=== PATIENT | male | born 1985 | race Caucasian/White ===

== ENCOUNTER 2018-01-24 16:27 | Observation (INO) | payer OTHER ==
[~2018-01-24] VITALS: Ht 182.9 cm; Wt 136.1 kg
[2018-01-24 16:55] LABS: BASO # 0.1 x10^3/uL (0.0-0.2); BASO % 1 % (0-3); EOS # 0.1 x10^3/uL (0.0-0.7); EOS % 1 % (0-3); HEMATOCRIT 47.7 % (39.0-53.0); LYMPH # 2.4 x10^3/uL (1.0-4.8); LYMPH % 19 % (24-48); MEAN CORPUSCULAR HEMOGLOBIN 31 pg (25-35); MEAN CORPUSCULAR HGB CONC 36 g/dL (31-37); MEAN CORPUSCULAR VOLUME 86 fL (79-100); MONO % 8 % (0-9); NEUT # 9.1 x10^3uL (1.8-7.7); NEUT % 72 % (31-73); PLATELET COUNT 350 x10^3/uL (140-400); RED BLOOD COUNT 5.56 x10^6/uL (4.30-5.70); RED CELL DISTRIBUTION WIDTH 13.3 % (11.5-14.5); WHITE BLOOD COUNT 12.7 x10^3/uL (4.0-11.0)
[2018-01-24] MEDS ORDERED: ONDANSETRON PF 4 MG/2 ML VIAL. IV ONE (17:00)
[2018-01-24] MEDS ORDERED: MORPHINE SULFATE 4 MG/ML VIAL. IV ONE ×2 (17:00→18:15)
[2018-01-24 17:05] LABS: PROTHROMBIN TIME PATIENT 13.6 SEC (11.7-14.0)
[2018-01-24 17:06] LABS: CALCIUM 9.8 mg/dL (8.5-10.1); GFR 86.1; POTASSIUM 3.6 mmol/L (3.5-5.1)
[2018-01-24 17:08] LABS: D-DIMER < 0.27 ug/mlFEU (0.00-0.50)
[2018-01-24 17:17] LABS: ALBUMIN 4.1 g/dL (3.4-5.0); MAGNESIUM 1.9 mg/dL (1.8-2.4); TOTAL BILIRUBIN 0.7 mg/dL (0.2-1.0); TOTAL PROTEIN 8.2 g/dL (6.4-8.2)
--- NOTE | 2018-01-24 17:30 | PHYS DOC ---
Past Medical History Past Medical History: No Pertinent History Additional Past Surgical Histo: HERNIA INFANT Alcohol Use: None Drug Use: None Adult General Chief Complaint Chief Complaint: ABDOMINAL PAIN HPI HPI Patient is a 32 year old presented to the ER for evaluation of right side abdominal pain since 2 days ago. The pain began to radiate to right lower abdominal area today, associate with nausea. Patient denied any fever. No chest pain, no shortness of air. Patient denied any medical history, not on any medication at this time. Patient's father has history of CAD with STENTS. Patient has no history of diabetic, no HTN, NO cholesterol problem. He denied any urinary symptoms. Review of Systems Review of Systems Constitutional: Denies fever or chills [] Eyes: Denies change in visual acuity, redness, or eye pain [] HENT: Denies nasal congestion or sore throat [] Respiratory: Denies cough or shortness of breath [] Cardiovascular: No additional information not addressed in HPI [] GI: Positive for abdominal pain, nausea,NO vomiting, bloody stools or diarrhea [ ] : Denies dysuria or hematuria [] Musculoskeletal: Denies back pain or joint pain [] Integument: Denies rash or skin lesions [] Neurologic: Denies headache, focal weakness or sensory changes [] Endocrine: Denies polyuria or polydipsia [] All other systems were reviewed and found to be within normal limits, except as documented in this note. Current Medications Current Medications Current Medications Medications (Trade) Dose Ordered Sig/Kash Start Time Stop Time Status Last Admin Dose Admin Info (CONTRAST GIVEN -- Rx MONITORING) 1 each PRN DAILY PRN 01/24/18 17:45 01/26/18 17:44 Iohexol (Omnipaque 300 Mg/ml) 75 ml 1X ONCE 01/24/18 17:45 01/24/18 17:46 DC 01/24/18 18:00 100 ML Morphine Sulfate (Morphine Sulfate) 6 mg PRN Q2HR PRN 01/24/18 19:30 01/25/18 19:29 UNV Ondansetron HCl (Zofran) 4 mg PRN Q8HRS PRN 01/24/18 19:30 01/25/18 19:29 UNV Ringer's Solution 1,000 ml @ 75 mls/hr 1X ONCE 01/24/18 19:30 01/25/18 08:49 UNV Sodium Chloride 1,000 ml @ 1,000 mls/hr 1X ONCE 01/24/18 18:30 01/24/18 19:29 01/24/18 18:30 1,000 MLS/HR Allergies Allergies Allergies Coded Allergies Type Severity Reaction Last Updated Verified Penicillins Allergy Unknown 01/24/18 Yes Sulfa (Sulfonamide Antibiotics) Allergy Unknown 01/24/18 Yes Physical Exam Physical Exam Constitutional: Well developed, well nourished, no acute distress, non-toxic appearance. [] HENT: Normocephalic, atraumatic, bilateral external ears normal, oropharynx moist, no oral exudates, nose normal. [] Eyes: PERRLA, EOMI, conjunctiva normal, no discharge. [] Neck: Normal range of motion, no tenderness, supple, no stridor. [] Cardiovascular:Heart rate regular rhythm, no murmur [] Lungs & Thorax: Bilateral breath sounds clear to auscultation [] Abdomen: Bowel sounds normal, soft, There is tenderness to palpation in PERIUMBILICAL AREA, NO GUARDING, NO REBOUND, no masses, no pulsatile masses. [] Skin: Warm, dry, no erythema. PALE. Back: No tenderness, no CVA tenderness. [] Extremities: No tenderness, no cyanosis, no clubbing, ROM intact, no edema. [] Neurologic: Alert and oriented X 3, normal motor function, normal sensory function, no focal deficits noted. [] Psychologic: Affect normal, judgement normal, mood normal. [] Current Patient Data Vital Signs Vital Signs Date Time Temp Pulse Resp B/P (MAP) Pulse Ox O2 Delivery O2 Flow Rate FiO2 01/24/18 16:48 98.6 81 18 227/109 (148) 100 Room Air 98.6 Lab Values Laboratory Tests Test 01/24/18 16:46 01/24/18 17:23 White Blood Count 12.7 x10^3/uL (4.0-11.0) H Red Blood Count 5.56 x10^6/uL (4.30-5.70) Hemoglobin 17.0 g/dL (13.0-17.5) Hematocrit 47.7 % (39.0-53.0) Mean Corpuscular Volume 86 fL (79-100) Mean Corpuscular Hemoglobin 31 pg (25-35) Mean Corpuscular Hemoglobin Concent 36 g/dL (31-37) Red Cell Distribution Width 13.3 % (11.5-14.5) Platelet Count 350 x10^3/uL (140-400) Neutrophils (%) (Auto) 72 % (31-73) Lymphocytes (%) (Auto) 19 % (24-48) L Monocytes (%) (Auto) 8 % (0-9) Eosinophils (%) (Auto) 1 % (0-3) Basophils (%) (Auto) 1 % (0-3) Neutrophils # (Auto) 9.1 x10^3uL (1.8-7.7) H Lymphocytes # (Auto) 2.4 x10^3/uL (1.0-4.8) Monocytes # (Auto) 1.0 x10^3/uL (0.0-1.1) Eosinophils # (Auto) 0.1 x10^3/uL (0.0-0.7) Basophils # (Auto) 0.1 x10^3/uL (0.0-0.2) Prothrombin Time 13.6 SEC (11.7-14.0) Prothrombin Time INR 1.1 (0.8-1.1) D-Dimer (Alda) < 0.27 ug/mlFEU Sodium Level 136 mmol/L (136-145) Potassium Level 3.6 mmol/L (3.5-5.1) Chloride Level 98 mmol/L (98-107) Carbon Dioxide Level 26 mmol/L (21-32) Anion Gap 12 (6-14) Blood Urea Nitrogen 10 mg/dL (8-26) Creatinine 1.0 mg/dL (0.7-1.3) Estimated GFR (Cockcroft-Gault) 86.1 BUN/Creatinine Ratio 10 (6-20) Glucose Level 130 mg/dL (70-99) H Calcium Level 9.8 mg/dL (8.5-10.1) Magnesium Level 1.9 mg/dL (1.8-2.4) Total Bilirubin 0.7 mg/dL (0.2-1.0) Aspartate Amino Transferase (AST) 21 U/L (15-37) Alanine Aminotransferase (ALT) 35 U/L (16-63) Alkaline Phosphatase 95 U/L (46-116) Creatine Kinase 96 U/L (39-308) Creatine Kinase MB (Mass) 0.7 ng/mL (0.0-3.6) Creatine Kinase MB Relative Index 0.7 % (0-4) Troponin I Quantitative < 0.017 ng/mL (0.000-0.055) EN-Mso-O-Type Natriuretic Peptide 24 pg/mL (0-124) Total Protein 8.2 g/dL (6.4-8.2) Albumin 4.1 g/dL (3.4-5.0) Albumin/Globulin Ratio 1.0 (1.0-1.7) Lipase 79 U/L (73-393) Urine Collection Type Unknown Urine Color Dk yellow Urine Clarity Clear Urine pH 6.5 Urine Specific [place] 1.025 Urine Protein 100 mg/dL (NEG-TRACE) Urine Glucose (UA) Negative mg/dL (NEG) Urine Ketones (Stick) 40 mg/dL (NEG) Urine Blood Negative (NEG) Urine Nitrite Negative (NEG) Urine Bilirubin Negative (NEG) Urine Urobilinogen Dipstick 1.0 mg/dL (0.2 mg/dL) Urine Leukocyte Esterase Negative (NEG) Urine RBC 0 /HPF (0-2) Urine WBC Rare /HPF (0-4) Urine Squamous Epithelial Cells None /LPF Urine Bacteria 0 /HPF (0-FEW) Urine Hyaline Casts Moderate /HPF Urine Mucus Marked /LPF Urine Opiates Screen Neg (NEG) Urine Methadone Screen Neg (NEG) Urine Barbiturates Neg (NEG) Urine Phencyclidine Screen Neg (NEG) Urine Amphetamine/Methamphetamine Neg (NEG) Urine Benzodiazepines Screen Neg (NEG) Urine Cocaine Screen Neg (NEG) Urine Cannabinoids Screen Neg (NEG) Urine Ethyl Alcohol Neg (NEG) Laboratory Tests 01/24/18 16:46 Laboratory Tests 01/24/18 16:46 EKG EKG EKG: RATE OF 65 BPM, NO STEMI. NSR. Radiology/Procedures Radiology/Procedures CT abd/pelvis: Abdomen findings: Lung bases unremarkable. L5-S1 disc osteophyte with spinal canal and neural foraminal stenoses. Hypodense liver likely fatty. Gallbladder, pancreas, adrenals, spleen and kidneys are unremarkable. There is mild asymmetric fluid distention of the terminal ileum and cecum without significant inflammatory change surrounding the segments. Appendix is normal without inflammation. No abdominal fluid. No adenopathy. Pelvis findings: Bladder, prostate, rectum and bones are unremarkable. No fluid or adenopathy. IMPRESSION: 1. Mild asymmetric fluid distention of the terminal ileum and cecum at the right lower quadrant with no wall thickening or surrounding edema. This could represent changes of low-grade ileocolitis. Given the fluid distention without obvious inflammation, low-grade obstruction at the ileocecal junction would also be a consideration. 2. The appendix is negative. Course & Med Decision Making Course & Med Decision Making Pertinent Labs and Imaging studies reviewed. (See chart for details) Patient's care was transferred over to Dr. Lavell Lopez at shift change, awaiting for CT SCAN OF ABDOMEN AND PELVIC. 19:20: Patient is evaluated and reexamined. He does continue to complain of some abdominal distention and "pressure." About his abdomen. He also continues to complain of some mild pain. He feels mildly nauseated still. Upon examination of the abdomen is soft and diffusely tender but with no guarding or rebound tenderness. CT scan is complete with findings above. There is no acute small bowel obstruction but some nonspecific findings. Given the fact that he continues to have pain along with nonspecific CT findings, early SBO is not entirely ruled out. It does seem unlikely as he has no significant abdominal surgical hx other than a hernia repair. I discussed with the patient the option for discharge home with clear liquid diet over the next 24-48 hours and strict return precautions versus admission to the hospital on NPO status with IV fluids and monitoring. The patient prefers admission. Bridge orders are placed. IVF's, pain meds. KUB in am. Dragon Disclaimer Maxineon Disclaimer This electronic medical record was generated, in whole or in part, using a voice recognition dictation system. Departure Departure Disposition: 09 ADMITTED INPATIENT Admitting Physician: Mickey Vance Condition: GOOD Referrals: NO PCP (PCP) ESTRELLITA LEE DO Jan 24, 2018 17:30 LAVELL LOPEZ DO Jan 24, 2018 19:16
[2018-01-24 17:32] LABS: BILIRUBIN,URINE NEGATIVE (NEG); CLARITY,URINE CLEAR; NITRITE,URINE NEGATIVE (NEG); PH,URINE 6.5; PROTEIN,URINE 100 mg/dL (NEG-TRACE)
[2018-01-24 17:38] LABS: AMPHETAMINE/METHAMPHETAMINE NEG (NEG); BARBITURATES NEG (NEG); BENZODIAZEPINES NEG (NEG); CANNABINOIDS NEG (NEG); COCAINE NEG (NEG); METHADONE NEG (NEG); OPIATES NEG (NEG); PHENCYCLIDINE NEG (NEG)
[2018-01-24 17:45] LABS: COLOR,URINE DK YELLOW; RBC,URINE 0 /HPF (0-2)
[2018-01-24] MEDS ORDERED: CONTRAST GIVEN. MC PRN (17:45)
[2018-01-24] MEDS ORDERED: IOHEXOL 300 MG/ML 100ML VIAL. IV ONE (17:45)
[2018-01-24 17:46] LABS: BACTERIA,URINE 0 /HPF (0-FEW); HYALINE CASTS, URINE MODERATE /HPF; WBC,URINE RARE /HPF (0-4)
--- NOTE | 2018-01-24 18:23 | RAD ---
CT abdomen and pelvis with contrast HISTORY: Abdominal pain, nausea, vomiting, right-sided abdominal pain. TECHNIQUE: 35 mCi Omnipaque [address] imaging abdomen and pelvis acquired. Abdomen findings: Lung bases unremarkable. L5-S1 disc osteophyte with spinal canal and neural foraminal stenoses. Hypodense liver likely fatty. Gallbladder, pancreas, adrenals, spleen and kidneys are unremarkable. There is mild asymmetric fluid distention of the terminal ileum and cecum without significant inflammatory change surrounding the segments. Appendix is normal without inflammation. No abdominal fluid. No adenopathy. Pelvis findings: Bladder, prostate, rectum and bones are unremarkable. No fluid or adenopathy. IMPRESSION: 1. Mild asymmetric fluid distention of the terminal ileum and cecum at the right lower quadrant with no wall thickening or surrounding edema. This could represent changes of low-grade ileocolitis. Given the fluid distention without obvious inflammation, low-grade obstruction at the ileocecal junction would also be a consideration. 2. The appendix is negative. Exposure: One or more of the following individualized dose reduction techniques were utilized for this examination: 1. Automated exposure control 2. Adjustment of the mA and/or kV according to patient size 3. Use of iterative reconstruction technique Electronically signed by: Arik Gilbert MD (01/24/2018 6:19 PM) [id number]
[2018-01-24] MEDS ORDERED: IV NORMAL SALINE 1000ML BAG 1,000 ML IV ONE (18:30)
[2018-01-24] MEDS ORDERED: IV RINGERS,LACTATED 1000ML 1,000 ML IV ONE (19:30)
[2018-01-24 20:20] VITALS: BP 168/95
[2018-01-24] MEDS: ONDANSETRON PF 4 MG/2 ML VIAL. IV PRN (21:48)
[2018-01-24 23:00] VITALS: BP 151/86
--- NOTE | 2018-01-25 00:11 | HP ---
ADMIT DATE: 01/24/2018 CHIEF COMPLAINT: Abdominal pain. HISTORY OF PRESENT ILLNESS: The patient is a pleasant, healthy 32-year-old male who presented to the ER for evaluation of abdominal pain that has been occurring for 2 days. He vomited once, has some associated weakness. He has been taking [id number] medications, but that is not working. Symptoms are described as agonizing, worse with food. While in the ER, he was noted to have a possible small bowel obstruction and/or low grade ileocolitis, leukocytosis and hyperglycemia. I have discussed the case with the ER physician. We are going to admit the patient and consult GI. PAST MEDICAL HISTORY: Benign. ALLERGIES: PENICILLIN AND SULFA. FAMILY HISTORY: Hypertension. SOCIAL HISTORY: He is working on his master's degree. Does not drink, smoke or take drugs. MEDICATIONS: Reviewed, please refer to the MRAD. REVIEW OF SYSTEMS: GENERAL: No history of weight change, weakness or fevers. SKIN: No bruising, hair changes or rashes. EYES: No blurred, double or loss of vision. NOSE AND THROAT: No history of nosebleeds, hoarseness or sore throat. HEART: No history of palpitations, chest pain or shortness of breath on exertion. LUNGS: Denies cough, hemoptysis, wheezing or shortness of breath. GASTROINTESTINAL: He complains of abdominal pain. GENITOURINARY: No history of frequency, urgency, hesitancy or nocturia. NEUROLOGIC: Denies history of numbness, tingling, tremor or weakness. PSYCHIATRIC: No history of panic, anxiety or depression. ENDOCRINE: No history of heat or cold intolerance, polyuria or polydipsia. EXTREMITIES: Denies muscle weakness, joint pain, pain on walking or stiffness. PHYSICAL EXAMINATION: VITAL SIGNS: Temperature was 98.6, now it is up to 100.8, pulse 80, respirations 18, blood pressure 160/95. GENERAL: He is alert, cooperative, complaining of pain. HEART: Normal S1, S2. LUNGS: Clear to auscultation. ABDOMEN: Soft, tender. EXTREMITIES: Trace edema. SKIN: No rashes. ENDOCRINE: No thyromegaly. LYMPHATICS: No cervical nodes. HEMATOPOIETIC: No bruising. LABORATORY DATA: White count is 12. Electrolytes are normal. INR is 1. Drug screen is negative. Urinalysis negative. Imaging is showing ileocolitis versus small bowel obstruction. ASSESSMENT AND PLAN: Ileocolitis or small bowel obstruction. The patient has been admitted. We will consult Gastroenterology. Start IV antibiotics, IV fluids, p.r.n. Zofran and p.r.n. narcotics. Home medications. Repeat his labs. EDILBERTO JOHNSON DO DR: THIEN/claudia JOB#: [id number] / [id number]
[2018-01-25 03:00] VITALS: BP 165/95
--- NOTE | 2018-01-25 03:33 | EKG ---
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
[2018-01-25 05:08] LABS: BASO % 0 % (0-3); EOS # 0.1 x10^3/uL (0.0-0.7); EOS % 1 % (0-3); HEMATOCRIT 44.6 % (39.0-53.0); HEMOGLOBIN 15.5 g/dL (13.0-17.5); LYMPH # 2.5 x10^3/uL (1.0-4.8); LYMPH % 27 % (24-48); MEAN CORPUSCULAR HEMOGLOBIN 30 pg (25-35); MEAN CORPUSCULAR HGB CONC 35 g/dL (31-37); MEAN CORPUSCULAR VOLUME 87 fL (79-100); MONO # 0.7 x10^3/uL (0.0-1.1); MONO % 8 % (0-9); NEUT # 6.1 x10^3uL (1.8-7.7); NEUT % 64 % (31-73); PLATELET COUNT 302 x10^3/uL (140-400); RED BLOOD COUNT 5.11 x10^6/uL (4.30-5.70); RED CELL DISTRIBUTION WIDTH 13.4 % (11.5-14.5); WHITE BLOOD COUNT 9.4 x10^3/uL (4.0-11.0)
[2018-01-25] MEDS: MORPHINE SULFATE 4 MG/ML VIAL. IV PRN ×2 (05:16→10:42)
[2018-01-25 05:18] LABS: ALBUMIN 3.5 g/dL (3.4-5.0); ALBUMIN/GLOBULIN RATIO 0.9 (1.0-1.7); CALCIUM 9.1 mg/dL (8.5-10.1); CREATININE 0.8 mg/dL (0.7-1.3); GFR 111.3; POTASSIUM 3.4 mmol/L (3.5-5.1); TOTAL BILIRUBIN 0.6 mg/dL (0.2-1.0); TOTAL PROTEIN 7.6 g/dL (6.4-8.2)
[2018-01-25 07:00] VITALS: BP 155/94
[2018-01-25] MEDS: amLODIPine BESYLATE 10 MG TABLET PO SCH ×2 (08:30→20:41)
--- NOTE | 2018-01-25 10:02 | PDOC ---
PROGRESS NOTES History of Present Illness History of Present Illness ASSESSMENT AND PLAN: Ileocolitis or small bowel obstruction. PLAN admitted. consult Gastroenterology. IV antibiotics, IV FLUIDS p.r.n. Zofran and p.r.n. narcotics. Home medications. Vitals Vitals Vital Signs Date Time Temp Pulse Resp B/P (MAP) Pulse Ox O2 Delivery O2 Flow Rate FiO2 01/25/18 08:30 82 155/94 01/25/18 07:56 Room Air 01/25/18 07:00 97.5 16 96 97.5 01/25/18 05:46 94.0 Physical Exam Physical Exam GENERAL: He is alert, cooperative, HEART: Normal S1, S2. LUNGS: Clear to auscultation. ABDOMEN: Soft, tender. EXTREMITIES: Trace edema. SKIN: No rashes. ENDOCRINE: No thyromegaly. LYMPHATICS: No cervical nodes. HEMATOPOIETIC: No bruising. General: Alert, Oriented X3, Cooperative, mild distress Heart: Regular rate, Normal S1, Normal S2 Lungs: Clear Abdomen: Soft Extremities: No clubbing, No cyanosis Skin: No significant lesion Labs LABS Laboratory Tests Test 01/24/18 16:46 01/24/18 17:23 01/25/18 04:05 White Blood Count 12.7 x10^3/uL (4.0-11.0) 9.4 x10^3/uL (4.0-11.0) Red Blood Count 5.56 x10^6/uL (4.30-5.70) 5.11 x10^6/uL (4.30-5.70) Hemoglobin 17.0 g/dL (13.0-17.5) 15.5 g/dL (13.0-17.5) Hematocrit 47.7 % (39.0-53.0) 44.6 % (39.0-53.0) Mean Corpuscular Volume 86 fL (79-100) 87 fL (79-100) Mean Corpuscular Hemoglobin 31 pg (25-35) 30 pg (25-35) Mean Corpuscular Hemoglobin Concent 36 g/dL (31-37) 35 g/dL (31-37) Red Cell Distribution Width 13.3 % (11.5-14.5) 13.4 % (11.5-14.5) Platelet Count 350 x10^3/uL (140-400) 302 x10^3/uL (140-400) Neutrophils (%) (Auto) 72 % (31-73) 64 % (31-73) Lymphocytes (%) (Auto) 19 % (24-48) 27 % (24-48) Monocytes (%) (Auto) 8 % (0-9) 8 % (0-9) Eosinophils (%) (Auto) 1 % (0-3) 1 % (0-3) Basophils (%) (Auto) 1 % (0-3) 0 % (0-3) Neutrophils # (Auto) 9.1 x10^3uL (1.8-7.7) 6.1 x10^3uL (1.8-7.7) Lymphocytes # (Auto) 2.4 x10^3/uL (1.0-4.8) 2.5 x10^3/uL (1.0-4.8) Monocytes # (Auto) 1.0 x10^3/uL (0.0-1.1) 0.7 x10^3/uL (0.0-1.1) Eosinophils # (Auto) 0.1 x10^3/uL (0.0-0.7) 0.1 x10^3/uL (0.0-0.7) Basophils # (Auto) 0.1 x10^3/uL (0.0-0.2) 0.0 x10^3/uL (0.0-0.2) Prothrombin Time 13.6 SEC (11.7-14.0) Prothromb Time International Ratio 1.1 (0.8-1.1) D-Dimer (Alda) < 0.27 ug/mlFEU Sodium Level 136 mmol/L (136-145) 138 mmol/L (136-145) Potassium Level 3.6 mmol/L (3.5-5.1) 3.4 mmol/L (3.5-5.1) Chloride Level 98 mmol/L (98-107) 101 mmol/L (98-107) Carbon Dioxide Level 26 mmol/L (21-32) 27 mmol/L (21-32) Anion Gap 12 (6-14) 10 (6-14) Blood Urea Nitrogen 10 mg/dL (8-26) 8 mg/dL (8-26) Creatinine 1.0 mg/dL (0.7-1.3) 0.8 mg/dL (0.7-1.3) Estimated GFR (Cockcroft-Gault) 86.1 111.3 BUN/Creatinine Ratio 10 (6-20) 10 (6-20) Glucose Level 130 mg/dL (70-99) 90 mg/dL (70-99) Calcium Level 9.8 mg/dL (8.5-10.1) 9.1 mg/dL (8.5-10.1) Magnesium Level 1.9 mg/dL (1.8-2.4) Total Bilirubin 0.7 mg/dL (0.2-1.0) 0.6 mg/dL (0.2-1.0) Aspartate Amino Transf (AST/SGOT) 21 U/L (15-37) 16 U/L (15-37) Alanine Aminotransferase (ALT/SGPT) 35 U/L (16-63) 28 U/L (16-63) Alkaline Phosphatase 95 U/L (46-116) 81 U/L (46-116) Creatine Kinase 96 U/L (39-308) Creatine Kinase MB (Mass) 0.7 ng/mL (0.0-3.6) Creatine Kinase MB Relative Index 0.7 % (0-4) Troponin I Quantitative < 0.017 ng/mL (0.000-0.055) QR-[id number]-[id number]-Type Natriuretic Peptide 24 pg/mL (0-124) Total Protein 8.2 g/dL (6.4-8.2) 7.6 g/dL (6.4-8.2) Albumin 4.1 g/dL (3.4-5.0) 3.5 g/dL (3.4-5.0) Albumin/Globulin Ratio 1.0 (1.0-1.7) 0.9 (1.0-1.7) Lipase 79 U/L (73-393) Urine Collection Type Unknown Urine Color Dk yellow Urine Clarity Clear Urine pH 6.5 Urine Specific [place] 1.025 Urine Protein 100 mg/dL (NEG-TRACE) Urine Glucose (UA) Negative mg/dL (NEG) Urine Ketones (Stick) 40 mg/dL (NEG) Urine Blood Negative (NEG) Urine Nitrite Negative (NEG) Urine Bilirubin Negative (NEG) Urine Urobilinogen Dipstick 1.0 mg/dL (0.2 mg/dL) Urine Leukocyte Esterase Negative (NEG) Urine RBC 0 /HPF (0-2) Urine WBC Rare /HPF (0-4) Urine Squamous Epithelial Cells None /LPF Urine Bacteria 0 /HPF (0-FEW) Urine Hyaline Casts Moderate /HPF Urine Mucus Marked /LPF Urine Opiates Screen Neg (NEG) Urine Methadone Screen Neg (NEG) Urine Barbiturates Neg (NEG) Urine Phencyclidine Screen Neg (NEG) Urine Amphetamine/Methamphetamine Neg (NEG) Urine Benzodiazepines Screen Neg (NEG) Urine Cocaine Screen Neg (NEG) Urine Cannabinoids Screen Neg (NEG) Urine Ethyl Alcohol Neg (NEG) Assessment and Plan Assessmemt and Plan Problems Medical Problems: (1) Abdominal pain Status: Acute Comment Review of Relevant I have reviewed the following items telma (where applicable) has been applied. Labs Laboratory Tests Test 01/24/18 16:46 01/24/18 17:23 01/25/18 04:05 White Blood Count 12.7 x10^3/uL (4.0-11.0) 9.4 x10^3/uL (4.0-11.0) Red Blood Count 5.56 x10^6/uL (4.30-5.70) 5.11 x10^6/uL (4.30-5.70) Hemoglobin 17.0 g/dL (13.0-17.5) 15.5 g/dL (13.0-17.5) Hematocrit 47.7 % (39.0-53.0) 44.6 % (39.0-53.0) Mean Corpuscular Volume 86 fL (79-100) 87 fL (79-100) Mean Corpuscular Hemoglobin 31 pg (25-35) 30 pg (25-35) Mean Corpuscular Hemoglobin Concent 36 g/dL (31-37) 35 g/dL (31-37) Red Cell Distribution Width 13.3 % (11.5-14.5) 13.4 % (11.5-14.5) Platelet Count 350 x10^3/uL (140-400) 302 x10^3/uL (140-400) Neutrophils (%) (Auto) 72 % (31-73) 64 % (31-73) Lymphocytes (%) (Auto) 19 % (24-48) 27 % (24-48) Monocytes (%) (Auto) 8 % (0-9) 8 % (0-9) Eosinophils (%) (Auto) 1 % (0-3) 1 % (0-3) Basophils (%) (Auto) 1 % (0-3) 0 % (0-3) Neutrophils # (Auto) 9.1 x10^3uL (1.8-7.7) 6.1 x10^3uL (1.8-7.7) Lymphocytes # (Auto) 2.4 x10^3/uL (1.0-4.8) 2.5 x10^3/uL (1.0-4.8) Monocytes # (Auto) 1.0 x10^3/uL (0.0-1.1) 0.7 x10^3/uL (0.0-1.1) Eosinophils # (Auto) 0.1 x10^3/uL (0.0-0.7) 0.1 x10^3/uL (0.0-0.7) Basophils # (Auto) 0.1 x10^3/uL (0.0-0.2) 0.0 x10^3/uL (0.0-0.2) Prothrombin Time 13.6 SEC (11.7-14.0) Prothromb Time International Ratio 1.1 (0.8-1.1) D-Dimer (Alda) < 0.27 ug/mlFEU Sodium Level 136 mmol/L (136-145) 138 mmol/L (136-145) Potassium Level 3.6 mmol/L (3.5-5.1) 3.4 mmol/L (3.5-5.1) Chloride Level 98 mmol/L (98-107) 101 mmol/L (98-107) Carbon Dioxide Level 26 mmol/L (21-32) 27 mmol/L (21-32) Anion Gap 12 (6-14) 10 (6-14) Blood Urea Nitrogen 10 mg/dL (8-26) 8 mg/dL (8-26) Creatinine 1.0 mg/dL (0.7-1.3) 0.8 mg/dL (0.7-1.3) Estimated GFR (Cockcroft-Gault) 86.1 111.3 BUN/Creatinine Ratio 10 (6-20) 10 (6-20) Glucose Level 130 mg/dL (70-99) 90 mg/dL (70-99) Calcium Level 9.8 mg/dL (8.5-10.1) 9.1 mg/dL (8.5-10.1) Magnesium Level 1.9 mg/dL (1.8-2.4) Total Bilirubin 0.7 mg/dL (0.2-1.0) 0.6 mg/dL (0.2-1.0) Aspartate Amino Transf (AST/SGOT) 21 U/L (15-37) 16 U/L (15-37) Alanine Aminotransferase (ALT/SGPT) 35 U/L (16-63) 28 U/L (16-63) Alkaline Phosphatase 95 U/L (46-116) 81 U/L (46-116) Creatine Kinase 96 U/L (39-308) Creatine Kinase MB (Mass) 0.7 ng/mL (0.0-3.6) Creatine Kinase MB Relative Index 0.7 % (0-4) Troponin I Quantitative < 0.017 ng/mL (0.000-0.055) [place]-[id number]-Type Natriuretic Peptide 24 pg/mL (0-124) Total Protein 8.2 g/dL (6.4-8.2) 7.6 g/dL (6.4-8.2) Albumin 4.1 g/dL (3.4-5.0) 3.5 g/dL (3.4-5.0) Albumin/Globulin Ratio 1.0 (1.0-1.7) 0.9 (1.0-1.7) Lipase 79 U/L (73-393) Urine Collection Type Unknown Urine Color Dk yellow Urine Clarity Clear Urine pH 6.5 Urine Specific [place] 1.025 Urine Protein 100 mg/dL (NEG-TRACE) Urine Glucose (UA) Negative mg/dL (NEG) Urine Ketones (Stick) 40 mg/dL (NEG) Urine Blood Negative (NEG) Urine Nitrite Negative (NEG) Urine Bilirubin Negative (NEG) Urine Urobilinogen Dipstick 1.0 mg/dL (0.2 mg/dL) Urine Leukocyte Esterase Negative (NEG) Urine RBC 0 /HPF (0-2) Urine WBC Rare /HPF (0-4) Urine Squamous Epithelial Cells None /LPF Urine Bacteria 0 /HPF (0-FEW) Urine Hyaline Casts Moderate /HPF Urine Mucus Marked /LPF Urine Opiates Screen Neg (NEG) Urine Methadone Screen Neg (NEG) Urine Barbiturates Neg (NEG) Urine Phencyclidine Screen Neg (NEG) Urine Amphetamine/Methamphetamine Neg (NEG) Urine Benzodiazepines Screen Neg (NEG) Urine Cocaine Screen Neg (NEG) Urine Cannabinoids Screen Neg (NEG) Urine Ethyl Alcohol Neg (NEG) Laboratory Tests Test 01/24/18 16:46 01/24/18 17:23 01/25/18 04:05 White Blood Count 12.7 x10^3/uL (4.0-11.0) 9.4 x10^3/uL (4.0-11.0) Red Blood Count 5.56 x10^6/uL (4.30-5.70) 5.11 x10^6/uL (4.30-5.70) Hemoglobin 17.0 g/dL (13.0-17.5) 15.5 g/dL (13.0-17.5) Hematocrit 47.7 % (39.0-53.0) 44.6 % (39.0-53.0) Mean Corpuscular Volume 86 fL (79-100) 87 fL (79-100) Mean Corpuscular Hemoglobin 31 pg (25-35) 30 pg (25-35) Mean Corpuscular Hemoglobin Concent 36 g/dL (31-37) 35 g/dL (31-37) Red Cell Distribution Width 13.3 % (11.5-14.5) 13.4 % (11.5-14.5) Platelet Count 350 x10^3/uL (140-400) 302 x10^3/uL (140-400) Neutrophils (%) (Auto) 72 % (31-73) 64 % (31-73) Lymphocytes (%) (Auto) 19 % (24-48) 27 % (24-48) Monocytes (%) (Auto) 8 % (0-9) 8 % (0-9) Eosinophils (%) (Auto) 1 % (0-3) 1 % (0-3) Basophils (%) (Auto) 1 % (0-3) 0 % (0-3) Neutrophils # (Auto) 9.1 x10^3uL (1.8-7.7) 6.1 x10^3uL (1.8-7.7) Lymphocytes # (Auto) 2.4 x10^3/uL (1.0-4.8) 2.5 x10^3/uL (1.0-4.8) Monocytes # (Auto) 1.0 x10^3/uL (0.0-1.1) 0.7 x10^3/uL (0.0-1.1) Eosinophils # (Auto) 0.1 x10^3/uL (0.0-0.7) 0.1 x10^3/uL (0.0-0.7) Basophils # (Auto) 0.1 x10^3/uL (0.0-0.2) 0.0 x10^3/uL (0.0-0.2) Prothrombin Time 13.6 SEC (11.7-14.0) Prothromb Time International Ratio 1.1 (0.8-1.1) D-Dimer (Alda) < 0.27 ug/mlFEU Sodium Level 136 mmol/L (136-145) 138 mmol/L (136-145) Potassium Level 3.6 mmol/L (3.5-5.1) 3.4 mmol/L (3.5-5.1) Chloride Level 98 mmol/L (98-107) 101 mmol/L (98-107) Carbon Dioxide Level 26 mmol/L (21-32) 27 mmol/L (21-32) Anion Gap 12 (6-14) 10 (6-14) Blood Urea Nitrogen 10 mg/dL (8-26) 8 mg/dL (8-26) Creatinine 1.0 mg/dL (0.7-1.3) 0.8 mg/dL (0.7-1.3) Estimated GFR (Cockcroft-Gault) 86.1 111.3 BUN/Creatinine Ratio 10 (6-20) 10 (6-20) Glucose Level 130 mg/dL (70-99) 90 mg/dL (70-99) Calcium Level 9.8 mg/dL (8.5-10.1) 9.1 mg/dL (8.5-10.1) Magnesium Level 1.9 mg/dL (1.8-2.4) Total Bilirubin 0.7 mg/dL (0.2-1.0) 0.6 mg/dL (0.2-1.0) Aspartate Amino Transf (AST/SGOT) 21 U/L (15-37) 16 U/L (15-37) Alanine Aminotransferase (ALT/SGPT) 35 U/L (16-63) 28 U/L (16-63) Alkaline Phosphatase 95 U/L (46-116) 81 U/L (46-116) Creatine Kinase 96 U/L (39-308) Creatine Kinase MB (Mass) 0.7 ng/mL (0.0-3.6) Creatine Kinase MB Relative Index 0.7 % (0-4) Troponin I Quantitative < 0.017 ng/mL (0.000-0.055) GU-Kcb-[id number]-Type Natriuretic Peptide 24 pg/mL (0-124) Total Protein 8.2 g/dL (6.4-8.2) 7.6 g/dL (6.4-8.2) Albumin 4.1 g/dL (3.4-5.0) 3.5 g/dL (3.4-5.0) Albumin/Globulin Ratio 1.0 (1.0-1.7) 0.9 (1.0-1.7) Lipase 79 U/L (73-393) Urine Collection Type Unknown Urine Color Dk yellow Urine Clarity Clear Urine pH 6.5 Urine Specific [place] 1.025 Urine Protein 100 mg/dL (NEG-TRACE) Urine Glucose (UA) Negative mg/dL (NEG) Urine Ketones (Stick) 40 mg/dL (NEG) Urine Blood Negative (NEG) Urine Nitrite Negative (NEG) Urine Bilirubin Negative (NEG) Urine Urobilinogen Dipstick 1.0 mg/dL (0.2 mg/dL) Urine Leukocyte Esterase Negative (NEG) Urine RBC 0 /HPF (0-2) Urine WBC Rare /HPF (0-4) Urine Squamous Epithelial Cells None /LPF Urine Bacteria 0 /HPF (0-FEW) Urine Hyaline Casts Moderate /HPF Urine Mucus Marked /LPF Urine Opiates Screen Neg (NEG) Urine Methadone Screen Neg (NEG) Urine Barbiturates Neg (NEG) Urine Phencyclidine Screen Neg (NEG) Urine Amphetamine/Methamphetamine Neg (NEG) Urine Benzodiazepines Screen Neg (NEG) Urine Cocaine Screen Neg (NEG) Urine Cannabinoids Screen Neg (NEG) Urine Ethyl Alcohol Neg (NEG) Medications Current Medications Morphine Sulfate (Morphine Sulfate) 4 mg 1X ONCE IV Last administered on 01/24 17:11; Start 01/24/18 at 17:00; Stop 01/24/18 at 17:01; Status DC Ondansetron HCl (Zofran) 8 mg 1X ONCE IV Last administered on 01/24/18at 17:11 ; Start 01/24/18 at 17:00; Stop 01/24/18 at 17:01; Status DC Iohexol (Omnipaque 300 Mg/ml) 75 ml 1X ONCE IV Last administered on at 18:00; Start 01/24/18 at 17:45; Stop 01/24/18 at 17:46; Status DC Info (CONTRAST GIVEN -- Rx MONITORING) 1 each PRN DAILY PRN MC SEE COMMENTS; Start 01/24/18 at 17:45; Stop 01/26/18 at 17:44 Sodium Chloride 1,000 ml @ 1,000 mls/hr 1X ONCE IV Last administered on 01/24at 18:30; Start 01/24/18 at 18:30; Stop 01/24/18 at 19:29; Status DC Morphine Sulfate (Morphine Sulfate) 4 mg 1X ONCE IV Last administered on 01/24at 18:33; Start 01/24/18 at 18:15; Stop 01/24/18 at 18:16; Status DC Ondansetron HCl (Zofran) 4 mg PRN Q8HRS PRN IV NAUSEA/VOMITING Last administered on 01/24/18at 21:48; Start 01/24/18 at 19:30; Stop 01/25/18 at 19 :29 Morphine Sulfate (Morphine Sulfate) 6 mg PRN Q2HR PRN IV PAIN Last administered on 01/25/18at 05:16; Start 01/24/18 at 19:30; Stop 01/25/18 at 19 :29 Ringer's Solution 1,000 ml @ 75 mls/hr 1X ONCE IV Last administered on at 19:43; Start 01/24/18 at 19:30; Stop 01/25/18 at 08:49; Status DC Amlodipine Besylate (Norvasc) 10 mg DAILY PO ; Start 01/25/18 at 09:00 Levofloxacin/ Dextrose 150 ml @ 100 mls/hr Q24H IV ; Start 01/25/18 at 21:00 Levofloxacin/ Dextrose 150 ml @ 100 mls/hr ONCE ONCE IV Last administered on 01/25/18at 00:02; Start 01/25/18 at 00:00; Stop 01/25/18 at 01:29; Status DC Metronidazole 100 ml @ 100 mls/hr Q8HRS IV Last administered on 01/25/18at 08: 31; Start 01/25/18 at 07:15 Vitals/I & O Vital Sign - Last 24 Hours 01/24/18 01/24/18 01/24/18 01/24/18 16:48 17:30 18:30 19:30 Temp 98.6 98.6 Pulse 81 66 76 93 Resp 18 18 18 18 B/P (MAP) 227/109 (148) 208/99 (135) 177/97 (123) 176/94 (121) Pulse Ox 100 99 99 O2 Delivery Room Air Room Air O2 Flow Rate 94.0 01/24/18 01/24/18 01/24/18 01/25/18 20:20 20:40 23:00 03:00 Temp 100.8 98.2 98.4 100.8 98.2 98.4 Pulse 86 79 76 Resp 18 18 18 B/P (MAP) 168/95 (119) 151/86 (107) 165/95 (118) Pulse Ox 96 96 92 O2 Delivery Room Air Room Air Room Air Room Air 01/25/18 01/25/18 01/25/18 01/25/18 05:16 05:46 07:00 07:56 Temp 97.5 97.5 Pulse 82 Resp 18 16 B/P (MAP) 155/94 (114) Pulse Ox 92 92 96 O2 Delivery Room Air Room Air Room Air Room Air O2 Flow Rate 94.0 94.0 01/25/18 08:30 Pulse 82 B/P (MAP) 155/94 Intake and Output 01/24/18 01/24/18 01/25/18 15:00 23:00 07:00 Intake Total 0 ml 0 ml Balance 0 ml 0 ml ALONA VARELA MD Jan 25, 2018 10:02
[2018-01-25] MEDS: ONDANSETRON PF 4 MG/2 ML VIAL. IV PRN (10:40)
[2018-01-25 11:00] VITALS: BP 145/97
--- NOTE | 2018-01-25 14:27 | PDOC2 ---
CONSULT Date of Consult Date of Consult DATE: 01/25/18 TIME: 14:17 Reason for Consult Reason for Consult: new abd pain, constipation nausea starting last week History of Present Illness Reason for Visit: 32 yo male in good health with no chronic GI problems. Was in good health until he noted some dehydration last weekend followed by change in bowel pattern with NEW constipation. Normally he has regular bowel movements without laxative use This was followed by lower abdominal pain and cramps and nausea but no fever, diarrhea, rectal bleeding, melena etc. No recent NSAIDS, antibiotics, change in diet etc. Family history negative for colitis, IBD, colon cancer , PUD etc Past Medical History Cardiovascular: No pertinent hx GI: No pertinent hx Past Surgical History Past Surgical History: No pertinent history Family History Family History: Hypertension Current Problem List Problem List Problems Medical Problems: (1) Abdominal pain Status: Acute Current Medications Current Medications Current Medications Morphine Sulfate (Morphine Sulfate) 4 mg 1X ONCE IV Last administered on 01/24at 17:11; Start 01/24/18 at 17:00; Stop 01/24/18 at 17:01; Status DC Ondansetron HCl (Zofran) 8 mg 1X ONCE IV Last administered on 01/24/18at 17:11 ; Start 01/24/18 at 17:00; Stop 01/24/18 at 17:01; Status DC Iohexol (Omnipaque 300 Mg/ml) 75 ml 1X ONCE IV Last administered on at 18:00; Start 01/24/18 at 17:45; Stop 01/24/18 at 17:46; Status DC Info (CONTRAST GIVEN -- Rx MONITORING) 1 each PRN DAILY PRN MC SEE COMMENTS; Start 01/24/18 at 17:45; Stop 01/26/18 at 17:44 Sodium Chloride 1,000 ml @ 1,000 mls/hr 1X ONCE IV Last administered on 01/24at 18:30; Start 01/24/18 at 18:30; Stop 01/24/18 at 19:29; Status DC Morphine Sulfate (Morphine Sulfate) 4 mg 1X ONCE IV Last administered on 01/24at 18:33; Start 01/24/18 at 18:15; Stop 01/24/18 at 18:16; Status DC Ondansetron HCl (Zofran) 4 mg PRN Q8HRS PRN IV NAUSEA/VOMITING Last administered on 01/25/18at 10:40; Start 01/24/18 at 19:30; Stop 01/25/18 at 19 :29 Morphine Sulfate (Morphine Sulfate) 6 mg PRN Q2HR PRN IV PAIN Last administered on 01/25/18at 10:42; Start 01/24/18 at 19:30; Stop 01/25/18 at 19 :29 Ringer's Solution 1,000 ml @ 75 mls/hr 1X ONCE IV Last administered on at 19:43; Start 01/24/18 at 19:30; Stop 01/25/18 at 08:49; Status DC Amlodipine Besylate (Norvasc) 10 mg DAILY PO ; Start 01/25/18 at 09:00 Levofloxacin/ Dextrose 150 ml @ 100 mls/hr Q24H IV ; Start 01/25/18 at 21:00 Levofloxacin/ Dextrose 150 ml @ 100 mls/hr ONCE ONCE IV Last administered on 01/25/18at 00:02; Start 01/25/18 at 00:00; Stop 01/25/18 at 01:29; Status DC Metronidazole 100 ml @ 100 mls/hr Q8HRS IV Last administered on 01/25/18at 12: 51; Start 01/25/18 at 07:15 Allergies Allergies: Coded Allergies: Penicillins (Verified Allergy, Unknown, 01/24/18) Sulfa (Sulfonamide Antibiotics) (Verified Allergy, Unknown, 01/24/18) ROS Gastrointestinal: Yes Nausea, Yes Abdominal Pain, Yes Constipation Physical Exam General: Alert, Oriented X3 HEENT: PERRLA Lungs: Clear to auscultation Heart: Regular rate, Normal S1, Normal S2 Abdomen: Normal bowel sounds, Soft, No tenderness, No hepatosplenomegaly, No masses Extremities: No clubbing, No cyanosis Skin: No rashes Neuro: Normal speech Psych/Mental Status: Mental status NL Vitals VITALS Vital Signs Date Time Temp Pulse Resp B/P (MAP) Pulse Ox O2 Delivery O2 Flow Rate FiO2 01/25/18 11:18 Room Air 01/25/18 11:00 97.7 63 18 145/97 (113) 95 97.7 01/25/18 05:46 94.0 Labs Labs Laboratory Tests Test 01/24/18 16:46 01/24/18 17:23 01/25/18 04:05 White Blood Count 12.7 x10^3/uL (4.0-11.0) 9.4 x10^3/uL (4.0-11.0) Red Blood Count 5.56 x10^6/uL (4.30-5.70) 5.11 x10^6/uL (4.30-5.70) Hemoglobin 17.0 g/dL (13.0-17.5) 15.5 g/dL (13.0-17.5) Hematocrit 47.7 % (39.0-53.0) 44.6 % (39.0-53.0) Mean Corpuscular Volume 86 fL (79-100) 87 fL (79-100) Mean Corpuscular Hemoglobin 31 pg (25-35) 30 pg (25-35) Mean Corpuscular Hemoglobin Concent 36 g/dL (31-37) 35 g/dL (31-37) Red Cell Distribution Width 13.3 % (11.5-14.5) 13.4 % (11.5-14.5) Platelet Count 350 x10^3/uL (140-400) 302 x10^3/uL (140-400) Neutrophils (%) (Auto) 72 % (31-73) 64 % (31-73) Lymphocytes (%) (Auto) 19 % (24-48) 27 % (24-48) Monocytes (%) (Auto) 8 % (0-9) 8 % (0-9) Eosinophils (%) (Auto) 1 % (0-3) 1 % (0-3) Basophils (%) (Auto) 1 % (0-3) 0 % (0-3) Neutrophils # (Auto) 9.1 x10^3uL (1.8-7.7) 6.1 x10^3uL (1.8-7.7) Lymphocytes # (Auto) 2.4 x10^3/uL (1.0-4.8) 2.5 x10^3/uL (1.0-4.8) Monocytes # (Auto) 1.0 x10^3/uL (0.0-1.1) 0.7 x10^3/uL (0.0-1.1) Eosinophils # (Auto) 0.1 x10^3/uL (0.0-0.7) 0.1 x10^3/uL (0.0-0.7) Basophils # (Auto) 0.1 x10^3/uL (0.0-0.2) 0.0 x10^3/uL (0.0-0.2) Prothrombin Time 13.6 SEC (11.7-14.0) Prothromb Time International Ratio 1.1 (0.8-1.1) D-Dimer (Alda) < 0.27 ug/mlFEU Sodium Level 136 mmol/L (136-145) 138 mmol/L (136-145) Potassium Level 3.6 mmol/L (3.5-5.1) 3.4 mmol/L (3.5-5.1) Chloride Level 98 mmol/L (98-107) 101 mmol/L (98-107) Carbon Dioxide Level 26 mmol/L (21-32) 27 mmol/L (21-32) Anion Gap 12 (6-14) 10 (6-14) Blood Urea Nitrogen 10 mg/dL (8-26) 8 mg/dL (8-26) Creatinine 1.0 mg/dL (0.7-1.3) 0.8 mg/dL (0.7-1.3) Estimated GFR (Cockcroft-Gault) 86.1 111.3 BUN/Creatinine Ratio 10 (6-20) 10 (6-20) Glucose Level 130 mg/dL (70-99) 90 mg/dL (70-99) Calcium Level 9.8 mg/dL (8.5-10.1) 9.1 mg/dL (8.5-10.1) Magnesium Level 1.9 mg/dL (1.8-2.4) Total Bilirubin 0.7 mg/dL (0.2-1.0) 0.6 mg/dL (0.2-1.0) Aspartate Amino Transf (AST/SGOT) 21 U/L (15-37) 16 U/L (15-37) Alanine Aminotransferase (ALT/SGPT) 35 U/L (16-63) 28 U/L (16-63) Alkaline Phosphatase 95 U/L (46-116) 81 U/L (46-116) Creatine Kinase 96 U/L (39-308) Creatine Kinase MB (Mass) 0.7 ng/mL (0.0-3.6) Creatine Kinase MB Relative Index 0.7 % (0-4) Troponin I Quantitative < 0.017 ng/mL (0.000-0.055) JZ-[id number]-Type Natriuretic Peptide 24 pg/mL (0-124) Total Protein 8.2 g/dL (6.4-8.2) 7.6 g/dL (6.4-8.2) Albumin 4.1 g/dL (3.4-5.0) 3.5 g/dL (3.4-5.0) Albumin/Globulin Ratio 1.0 (1.0-1.7) 0.9 (1.0-1.7) Lipase 79 U/L (73-393) Urine Collection Type Unknown Urine Color Dk yellow Urine Clarity Clear Urine pH 6.5 Urine Specific [place] 1.025 Urine Protein 100 mg/dL (NEG-TRACE) Urine Glucose (UA) Negative mg/dL (NEG) Urine Ketones (Stick) 40 mg/dL (NEG) Urine Blood Negative (NEG) Urine Nitrite Negative (NEG) Urine Bilirubin Negative (NEG) Urine Urobilinogen Dipstick 1.0 mg/dL (0.2 mg/dL) Urine Leukocyte Esterase Negative (NEG) Urine RBC 0 /HPF (0-2) Urine WBC Rare /HPF (0-4) Urine Squamous Epithelial Cells None /LPF Urine Bacteria 0 /HPF (0-FEW) Urine Hyaline Casts Moderate /HPF Urine Mucus Marked /LPF Urine Opiates Screen Neg (NEG) Urine Methadone Screen Neg (NEG) Urine Barbiturates Neg (NEG) Urine Phencyclidine Screen Neg (NEG) Urine Amphetamine/Methamphetamine Neg (NEG) Urine Benzodiazepines Screen Neg (NEG) Urine Cocaine Screen Neg (NEG) Urine Cannabinoids Screen Neg (NEG) Urine Ethyl Alcohol Neg (NEG) Laboratory Tests Test 01/24/18 16:46 01/24/18 17:23 01/25/18 04:05 White Blood Count 12.7 x10^3/uL (4.0-11.0) 9.4 x10^3/uL (4.0-11.0) Red Blood Count 5.56 x10^6/uL (4.30-5.70) 5.11 x10^6/uL (4.30-5.70) Hemoglobin 17.0 g/dL (13.0-17.5) 15.5 g/dL (13.0-17.5) Hematocrit 47.7 % (39.0-53.0) 44.6 % (39.0-53.0) Mean Corpuscular Volume 86 fL (79-100) 87 fL (79-100) Mean Corpuscular Hemoglobin 31 pg (25-35) 30 pg (25-35) Mean Corpuscular Hemoglobin Concent 36 g/dL (31-37) 35 g/dL (31-37) Red Cell Distribution Width 13.3 % (11.5-14.5) 13.4 % (11.5-14.5) Platelet Count 350 x10^3/uL (140-400) 302 x10^3/uL (140-400) Neutrophils (%) (Auto) 72 % (31-73) 64 % (31-73) Lymphocytes (%) (Auto) 19 % (24-48) 27 % (24-48) Monocytes (%) (Auto) 8 % (0-9) 8 % (0-9) Eosinophils (%) (Auto) 1 % (0-3) 1 % (0-3) Basophils (%) (Auto) 1 % (0-3) 0 % (0-3) Neutrophils # (Auto) 9.1 x10^3uL (1.8-7.7) 6.1 x10^3uL (1.8-7.7) Lymphocytes # (Auto) 2.4 x10^3/uL (1.0-4.8) 2.5 x10^3/uL (1.0-4.8) Monocytes # (Auto) 1.0 x10^3/uL (0.0-1.1) 0.7 x10^3/uL (0.0-1.1) Eosinophils # (Auto) 0.1 x10^3/uL (0.0-0.7) 0.1 x10^3/uL (0.0-0.7) Basophils # (Auto) 0.1 x10^3/uL (0.0-0.2) 0.0 x10^3/uL (0.0-0.2) Prothrombin Time 13.6 SEC (11.7-14.0) Prothromb Time International Ratio 1.1 (0.8-1.1) D-Dimer (Alda) < 0.27 ug/mlFEU Sodium Level 136 mmol/L (136-145) 138 mmol/L (136-145) Potassium Level 3.6 mmol/L (3.5-5.1) 3.4 mmol/L (3.5-5.1) Chloride Level 98 mmol/L (98-107) 101 mmol/L (98-107) Carbon Dioxide Level 26 mmol/L (21-32) 27 mmol/L (21-32) Anion Gap 12 (6-14) 10 (6-14) Blood Urea Nitrogen 10 mg/dL (8-26) 8 mg/dL (8-26) Creatinine 1.0 mg/dL (0.7-1.3) 0.8 mg/dL (0.7-1.3) Estimated GFR (Cockcroft-Gault) 86.1 111.3 BUN/Creatinine Ratio 10 (6-20) 10 (6-20) Glucose Level 130 mg/dL (70-99) 90 mg/dL (70-99) Calcium Level 9.8 mg/dL (8.5-10.1) 9.1 mg/dL (8.5-10.1) Magnesium Level 1.9 mg/dL (1.8-2.4) Total Bilirubin 0.7 mg/dL (0.2-1.0) 0.6 mg/dL (0.2-1.0) Aspartate Amino Transf (AST/SGOT) 21 U/L (15-37) 16 U/L (15-37) Alanine Aminotransferase (ALT/SGPT) 35 U/L (16-63) 28 U/L (16-63) Alkaline Phosphatase 95 U/L (46-116) 81 U/L (46-116) Creatine Kinase 96 U/L (39-308) Creatine Kinase MB (Mass) 0.7 ng/mL (0.0-3.6) Creatine Kinase MB Relative Index 0.7 % (0-4) Troponin I Quantitative < 0.017 ng/mL (0.000-0.055) NA-Khb-I-Type Natriuretic Peptide 24 pg/mL (0-124) Total Protein 8.2 g/dL (6.4-8.2) 7.6 g/dL (6.4-8.2) Albumin 4.1 g/dL (3.4-5.0) 3.5 g/dL (3.4-5.0) Albumin/Globulin Ratio 1.0 (1.0-1.7) 0.9 (1.0-1.7) Lipase 79 U/L (73-393) Urine Collection Type Unknown Urine Color Dk yellow Urine Clarity Clear Urine pH 6.5 Urine Specific [place] 1.025 Urine Protein 100 mg/dL (NEG-TRACE) Urine Glucose (UA) Negative mg/dL (NEG) Urine Ketones (Stick) 40 mg/dL (NEG) Urine Blood Negative (NEG) Urine Nitrite Negative (NEG) Urine Bilirubin Negative (NEG) Urine Urobilinogen Dipstick 1.0 mg/dL (0.2 mg/dL) Urine Leukocyte Esterase Negative (NEG) Urine RBC 0 /HPF (0-2) Urine WBC Rare /HPF (0-4) Urine Squamous Epithelial Cells None /LPF Urine Bacteria 0 /HPF (0-FEW) Urine Hyaline Casts Moderate /HPF Urine Mucus Marked /LPF Urine Opiates Screen Neg (NEG) Urine Methadone Screen Neg (NEG) Urine Barbiturates Neg (NEG) Urine Phencyclidine Screen Neg (NEG) Urine Amphetamine/Methamphetamine Neg (NEG) Urine Benzodiazepines Screen Neg (NEG) Urine Cocaine Screen Neg (NEG) Urine Cannabinoids Screen Neg (NEG) Urine Ethyl Alcohol Neg (NEG) Images Images CT ? inflammation in IC area Assessment/Plan Assessment/Plan New onset constipation, nausea, and abd pain- with CT showing non-specific inflammation in right colon- no chronic symptoms before this week- likely dehydrated with constipation and ischemic colitis or early enteritis but no diarrhea or f/c- could be irst sing of IBD but will need to monitor to confirm - clinically improved overnight with IV fluids and NPO and pain control- will add FLD and MOM and monitor- if tolerates and no worsening of nausea or pain then can plan early d/c- if not, then further xrays and return to NPO or CLD would be warranted MICHELLE PETERS MD Jan 25, 2018 14:27
[2018-01-25] MEDS ORDERED: MAGNESIUM HYDROXIDE 2,400 MG/30 ML ORAL.SUSP. PO ONE (14:30)
[2018-01-25 15:00] VITALS: BP 137/98
[2018-01-25 19:30] VITALS: BP 158/98
[2018-01-25 23:08] VITALS: BP 159/110
[2018-01-26] MEDS ORDERED: fentaNYL PF VIAL 100 MCG/2 ML VIAL IV ONE (01:45)
[2018-01-26] MEDS ORDERED: ACETAMINOPHEN 325 MG TABLET. PO PRN (01:45)
[2018-01-26 03:25] VITALS: BP 130/75
[2018-01-26 07:00] VITALS: BP 133/86
--- NOTE | 2018-01-26 10:19 | PDOC ---
PROGRESS NOTES History of Present Illness History of Present Illness ASSESSMENT AND PLAN: ACUTE ENTERITIS, RESOLVED PLAN admitted. Gastroenterology. OK WITH D/C p.r.n. Zofran and p.r.n. narcotics. Home medications. Vitals Vitals Vital Signs Date Time Temp Pulse Resp B/P (MAP) Pulse Ox O2 Delivery O2 Flow Rate FiO2 01/26/18 07:00 97.7 69 18 133/86 (102) 95 Room Air 97.7 01/26/18 01:55 94.0 Physical Exam Physical Exam GENERAL: He is alert, cooperative, HEART: Normal S1, S2. LUNGS: Clear to auscultation. ABDOMEN: Soft, tender. EXTREMITIES: Trace edema. SKIN: No rashes. ENDOCRINE: No thyromegaly. LYMPHATICS: No cervical nodes. HEMATOPOIETIC: No bruising. General: Alert, Oriented X3, Cooperative, mild distress Heart: Regular rate, Normal S1, Normal S2, No murmurs Lungs: Clear Abdomen: Normal bowel sounds, Soft, No tenderness Extremities: No clubbing, No cyanosis Skin: No significant lesion Assessment and Plan Assessmemt and Plan Problems Medical Problems: (1) Abdominal pain Status: Acute Comment Review of Relevant I have reviewed the following items telma (where applicable) has been applied. Labs Laboratory Tests Test 01/24/18 16:46 01/24/18 17:23 01/25/18 04:05 White Blood Count 12.7 x10^3/uL (4.0-11.0) 9.4 x10^3/uL (4.0-11.0) Red Blood Count 5.56 x10^6/uL (4.30-5.70) 5.11 x10^6/uL (4.30-5.70) Hemoglobin 17.0 g/dL (13.0-17.5) 15.5 g/dL (13.0-17.5) Hematocrit 47.7 % (39.0-53.0) 44.6 % (39.0-53.0) Mean Corpuscular Volume 86 fL (79-100) 87 fL (79-100) Mean Corpuscular Hemoglobin 31 pg (25-35) 30 pg (25-35) Mean Corpuscular Hemoglobin Concent 36 g/dL (31-37) 35 g/dL (31-37) Red Cell Distribution Width 13.3 % (11.5-14.5) 13.4 % (11.5-14.5) Platelet Count 350 x10^3/uL (140-400) 302 x10^3/uL (140-400) Neutrophils (%) (Auto) 72 % (31-73) 64 % (31-73) Lymphocytes (%) (Auto) 19 % (24-48) 27 % (24-48) Monocytes (%) (Auto) 8 % (0-9) 8 % (0-9) Eosinophils (%) (Auto) 1 % (0-3) 1 % (0-3) Basophils (%) (Auto) 1 % (0-3) 0 % (0-3) Neutrophils # (Auto) 9.1 x10^3uL (1.8-7.7) 6.1 x10^3uL (1.8-7.7) Lymphocytes # (Auto) 2.4 x10^3/uL (1.0-4.8) 2.5 x10^3/uL (1.0-4.8) Monocytes # (Auto) 1.0 x10^3/uL (0.0-1.1) 0.7 x10^3/uL (0.0-1.1) Eosinophils # (Auto) 0.1 x10^3/uL (0.0-0.7) 0.1 x10^3/uL (0.0-0.7) Basophils # (Auto) 0.1 x10^3/uL (0.0-0.2) 0.0 x10^3/uL (0.0-0.2) Prothrombin Time 13.6 SEC (11.7-14.0) Prothromb Time International Ratio 1.1 (0.8-1.1) D-Dimer (Alda) < 0.27 ug/mlFEU Sodium Level 136 mmol/L (136-145) 138 mmol/L (136-145) Potassium Level 3.6 mmol/L (3.5-5.1) 3.4 mmol/L (3.5-5.1) Chloride Level 98 mmol/L (98-107) 101 mmol/L (98-107) Carbon Dioxide Level 26 mmol/L (21-32) 27 mmol/L (21-32) Anion Gap 12 (6-14) 10 (6-14) Blood Urea Nitrogen 10 mg/dL (8-26) 8 mg/dL (8-26) Creatinine 1.0 mg/dL (0.7-1.3) 0.8 mg/dL (0.7-1.3) Estimated GFR (Cockcroft-Gault) 86.1 111.3 BUN/Creatinine Ratio 10 (6-20) 10 (6-20) Glucose Level 130 mg/dL (70-99) 90 mg/dL (70-99) Calcium Level 9.8 mg/dL (8.5-10.1) 9.1 mg/dL (8.5-10.1) Magnesium Level 1.9 mg/dL (1.8-2.4) Total Bilirubin 0.7 mg/dL (0.2-1.0) 0.6 mg/dL (0.2-1.0) Aspartate Amino Transf (AST/SGOT) 21 U/L (15-37) 16 U/L (15-37) Alanine Aminotransferase (ALT/SGPT) 35 U/L (16-63) 28 U/L (16-63) Alkaline Phosphatase 95 U/L (46-116) 81 U/L (46-116) Creatine Kinase 96 U/L (39-308) Creatine Kinase MB (Mass) 0.7 ng/mL (0.0-3.6) Creatine Kinase MB Relative Index 0.7 % (0-4) Troponin I Quantitative < 0.017 ng/mL (0.000-0.055) WI-Mxy-Y-Type Natriuretic Peptide 24 pg/mL (0-124) Total Protein 8.2 g/dL (6.4-8.2) 7.6 g/dL (6.4-8.2) Albumin 4.1 g/dL (3.4-5.0) 3.5 g/dL (3.4-5.0) Albumin/Globulin Ratio 1.0 (1.0-1.7) 0.9 (1.0-1.7) Lipase 79 U/L (73-393) Urine Collection Type Unknown Urine Color Dk yellow Urine Clarity Clear Urine pH 6.5 Urine Specific [place] 1.025 Urine Protein 100 mg/dL (NEG-TRACE) Urine Glucose (UA) Negative mg/dL (NEG) Urine Ketones (Stick) 40 mg/dL (NEG) Urine Blood Negative (NEG) Urine Nitrite Negative (NEG) Urine Bilirubin Negative (NEG) Urine Urobilinogen Dipstick 1.0 mg/dL (0.2 mg/dL) Urine Leukocyte Esterase Negative (NEG) Urine RBC 0 /HPF (0-2) Urine WBC Rare /HPF (0-4) Urine Squamous Epithelial Cells None /LPF Urine Bacteria 0 /HPF (0-FEW) Urine Hyaline Casts Moderate /HPF Urine Mucus Marked /LPF Urine Opiates Screen Neg (NEG) Urine Methadone Screen Neg (NEG) Urine Barbiturates Neg (NEG) Urine Phencyclidine Screen Neg (NEG) Urine Amphetamine/Methamphetamine Neg (NEG) Urine Benzodiazepines Screen Neg (NEG) Urine Cocaine Screen Neg (NEG) Urine Cannabinoids Screen Neg (NEG) Urine Ethyl Alcohol Neg (NEG) Medications Current Medications Morphine Sulfate (Morphine Sulfate) 4 mg 1X ONCE IV Last administered on 01/24at 17:11; Start 01/24/18 at 17:00; Stop 01/24/18 at 17:01; Status DC Ondansetron HCl (Zofran) 8 mg 1X ONCE IV Last administered on 01/24/18at 17:11 ; Start 01/24/18 at 17:00; Stop 01/24/18 at 17:01; Status DC Iohexol (Omnipaque 300 Mg/ml) 75 ml 1X ONCE IV Last administered on at 18:00; Start 01/24/18 at 17:45; Stop 01/24/18 at 17:46; Status DC Info (CONTRAST GIVEN -- Rx MONITORING) 1 each PRN DAILY PRN MC SEE COMMENTS; Start 01/24/18 at 17:45; Stop 01/26/18 at 17:44 Sodium Chloride 1,000 ml @ 1,000 mls/hr 1X ONCE IV Last administered on 01/24at 18:30; Start 01/24/18 at 18:30; Stop 01/24/18 at 19:29; Status DC Morphine Sulfate (Morphine Sulfate) 4 mg 1X ONCE IV Last administered on 01/24at 18:33; Start 01/24/18 at 18:15; Stop 01/24/18 at 18:16; Status DC Ondansetron HCl (Zofran) 4 mg PRN Q8HRS PRN IV NAUSEA/VOMITING Last administered on 01/25/18at 10:40; Start 01/24/18 at 19:30; Stop 01/25/18 at 19 :29; Status DC Morphine Sulfate (Morphine Sulfate) 6 mg PRN Q2HR PRN IV PAIN Last administered on 01/25/18at 10:42; Start 01/24/18 at 19:30; Stop 01/25/18 at 19 :29; Status DC Ringer's Solution 1,000 ml @ 75 mls/hr 1X ONCE IV Last administered on at 19:43; Start 01/24/18 at 19:30; Stop 01/25/18 at 08:49; Status DC Amlodipine Besylate (Norvasc) 10 mg DAILY PO Last administered on 01/25/18at 20 :41; Start 01/25/18 at 09:00 Levofloxacin/ Dextrose 150 ml @ 100 mls/hr Q24H IV Last administered on at 20:34; Start 01/25/18 at 21:00 Levofloxacin/ Dextrose 150 ml @ 100 mls/hr ONCE ONCE IV Last administered on 01/25/18at 00:02; Start 01/25/18 at 00:00; Stop 01/25/18 at 01:29; Status DC Metronidazole 100 ml @ 100 mls/hr Q8HRS IV Last administered on 01/26/18at 06: 17; Start 01/25/18 at 07:15 Magnesium Hydroxide (Milk Of Magnesia) 2,400 mg 1X ONCE PO Last administered on 01/25/18at 14:23; Start 01/25/18 at 14:30; Stop 01/25/18 at 14:31; Status DC Fentanyl Citrate (Fentanyl 2ml Vial) 50 mcg 1X ONCE IV Last administered on at 01:55; Start 01/26/18 at 01:45; Stop 01/26/18 at 01:46; Status DC Acetaminophen (Tylenol) 650 mg PRN Q6HRS PRN PO PAIN Last administered on 01/26at 01:55; Start 01/26/18 at 01:45 Vitals/I & O Vital Sign - Last 24 Hours 01/25/18 01/25/18 01/25/18 01/25/18 10:42 11:00 11:18 15:00 Temp 97.7 97.9 97.7 97.9 Pulse 63 64 Resp 18 16 B/P (MAP) 145/97 (113) 137/98 (111) Pulse Ox 95 98 O2 Delivery Room Air Room Air Room Air Room Air 01/25/18 01/25/18 01/25/18 01/25/18 19:30 20:00 20:41 23:08 Temp 98.3 98.1 98.3 98.1 Pulse 82 82 91 Resp 16 16 B/P (MAP) 158/98 (118) 158/98 159/110 (126) Pulse Ox 97 95 O2 Delivery Room Air Room Air Room Air 01/26/18 01/26/18 01/26/18 01/26/18 01:55 02:25 03:25 07:00 Temp 97.8 97.7 97.8 97.7 Pulse 74 69 Resp 20 20 18 18 B/P (MAP) 130/75 (93) 133/86 (102) Pulse Ox 95 95 96 95 O2 Delivery Room Air Room Air Room Air Room Air O2 Flow Rate 94.0 Intake and Output 01/25/18 01/25/18 01/26/18 15:00 23:00 07:00 Intake Total 0 ml 2120 ml 600 ml Output Total 1000 ml Balance 0 ml 1120 ml 600 ml ALONA VARELA MD Jan 26, 2018 10:19
--- NOTE | 2018-01-26 10:50 | PDOC ---
GI PROGRESS NOTES Date Date/Time DATE: 01/26/18 TIME: 10:47 Subjective Subjective dramatically improved- tolerating diet- had several BM with MOM- feeling much better Objective Vitals Vital Signs Date Time Temp Pulse Resp B/P (MAP) Pulse Ox O2 Delivery O2 Flow Rate FiO2 01/26/18 07:00 97.7 69 18 133/86 (102) 95 Room Air 97.7 01/26/18 03:25 97.8 74 18 130/75 (93) 96 Room Air 97.8 01/26/18 02:25 20 95 Room Air 01/26/18 01:55 20 95 Room Air 94.0 01/25/18 23:08 98.1 91 16 159/110 (126) 95 Room Air 98.1 01/25/18 20:41 82 158/98 01/25/18 20:00 Room Air 01/25/18 19:30 98.3 82 16 158/98 (118) 97 Room Air 98.3 01/25/18 15:00 97.9 64 16 137/98 (111) 98 Room Air 97.9 01/25/18 11:18 Room Air 01/25/18 11:00 97.7 63 18 145/97 (113) 95 Room Air 97.7 Physical Exam Physical Exam chest- clear abd- obese, soft NON tender, good bowel sounds Assessment Assessment Acute enteritis with constipation and pain- now resolved with MOM, IVF Plan- advance diet Ok to d/c from GI point of view- he will call if symptoms recur MICHELLE PETERS MD Jan 26, 2018 10:50
[2018-01-26 11:00] VITALS: BP 140/42
--- NOTE | 2018-01-26 13:07 | PDOC3 ---
Discharge Summary Date of Admission: Jan 24, 2018 Date of Discharge: Jan 26, 2018 Follow-Up: 3-5 days Admitting Diagnosis comment: ASSESSMENT AND PLAN: ACUTE ENTERITIS, RESOLVED PLAN admitted. Gastroenterology. OK WITH D/C FLAGYL 500MG PO TID X 7 DAYS Levaquin 500mg po daily x 7 days Home medications. Vitals Vitals Vital Signs Date Time Temp Pulse Resp B/P (MAP) Pulse Ox O2 Delivery O2 Flow Rate FiO2 01/26/18 07:00 97.7 69 18 133/86 (102) 95 Room Air 97.7 01/26/18 01:55 94.0 Physical Exam Physical Exam GENERAL: He is alert, cooperative, HEART: Normal S1, S2. LUNGS: Clear to auscultation. ABDOMEN: Soft, tender. EXTREMITIES: Trace edema. SKIN: No rashes. ENDOCRINE: No thyromegaly. LYMPHATICS: No cervical nodes. HEMATOPOIETIC: No bruising. General: Alert, Oriented X3, Cooperative, mild distress Heart: Regular rate, Normal S1, Normal S2, No murmurs Lungs: Clear Abdomen: Normal bowel sounds, Soft, No tenderness Extremities: No clubbing, No cyanosis Skin: No significant lesion FINAL DIAGNOSIS Problems Medical Problems: (1) Abdominal pain Status: Acute Brief Hospital Course Mr. Shultz is a 32 old [sex] who presented with [acute enteritis ] CONDITION AT DISCHARGE: Improved Discharge Medications Current Medications Morphine Sulfate (Morphine Sulfate) 4 mg 1X ONCE IV Last administered on 01/24at 17:11; Start 01/24/18 at 17:00; Stop 01/24/18 at 17:01; Status DC Ondansetron HCl (Zofran) 8 mg 1X ONCE IV Last administered on 01/24/18at 17:11 ; Start 01/24/18 at 17:00; Stop 01/24/18 at 17:01; Status DC Iohexol (Omnipaque 300 Mg/ml) 75 ml 1X ONCE IV Last administered on at 18:00; Start 01/24/18 at 17:45; Stop 01/24/18 at 17:46; Status DC Info (CONTRAST GIVEN -- Rx MONITORING) 1 each PRN DAILY PRN MC SEE COMMENTS; Start 01/24/18 at 17:45; Stop 01/26/18 at 17:44 Sodium Chloride 1,000 ml @ 1,000 mls/hr 1X ONCE IV Last administered on 01/24 18:30; Start 01/24/18 at 18:30; Stop 01/24/18 at 19:29; Status DC Morphine Sulfate (Morphine Sulfate) 4 mg 1X ONCE IV Last administered on 01/24at 18:33; Start 01/24/18 at 18:15; Stop 01/24/18 at 18:16; Status DC Ondansetron HCl (Zofran) 4 mg PRN Q8HRS PRN IV NAUSEA/VOMITING Last administered on 01/25/18at 10:40; Start 01/24/18 at 19:30; Stop 01/25/18 at 19 :29; Status DC Morphine Sulfate (Morphine Sulfate) 6 mg PRN Q2HR PRN IV PAIN Last administered on 01/25/18at 10:42; Start 01/24/18 at 19:30; Stop 01/25/18 at 19 :29; Status DC Ringer's Solution 1,000 ml @ 75 mls/hr 1X ONCE IV Last administered on at 19:43; Start 01/24/18 at 19:30; Stop 01/25/18 at 08:49; Status DC Amlodipine Besylate (Norvasc) 10 mg DAILY PO Last administered on 01/25/18at 20 :41; Start 01/25/18 at 09:00 Levofloxacin/ Dextrose 150 ml @ 100 mls/hr Q24H IV Last administered on at 20:34; Start 01/25/18 at 21:00 Levofloxacin/ Dextrose 150 ml @ 100 mls/hr ONCE ONCE IV Last administered on 01/25/18at 00:02; Start 01/25/18 at 00:00; Stop 01/25/18 at 01:29; Status DC Metronidazole 100 ml @ 100 mls/hr Q8HRS IV Last administered on 01/26/18at 06: 17; Start 01/25/18 at 07:15 Magnesium Hydroxide (Milk Of Magnesia) 2,400 mg 1X ONCE PO Last administered on 01/25/18at 14:23; Start 01/25/18 at 14:30; Stop 01/25/18 at 14:31; Status DC Fentanyl Citrate (Fentanyl 2ml Vial) 50 mcg 1X ONCE IV Last administered on at 01:55; Start 01/26/18 at 01:45; Stop 01/26/18 at 01:46; Status DC Acetaminophen (Tylenol) 650 mg PRN Q6HRS PRN PO PAIN Last administered on 01/26at 01:55; Start 01/26/18 at 01:45 Vital Signs Vital Signs Date Time Temp Pulse Resp B/P (MAP) Pulse Ox O2 Delivery O2 Flow Rate FiO2 01/26/18 11:00 97.6 74 16 140/42 (74) 96 Room Air 97.6 01/26/18 01:55 94.0 Labs Laboratory Tests Test 01/24/18 16:46 01/24/18 17:23 01/25/18 04:05 White Blood Count 12.7 x10^3/uL (4.0-11.0) 9.4 x10^3/uL (4.0-11.0) Red Blood Count 5.56 x10^6/uL (4.30-5.70) 5.11 x10^6/uL (4.30-5.70) Hemoglobin 17.0 g/dL (13.0-17.5) 15.5 g/dL (13.0-17.5) Hematocrit 47.7 % (39.0-53.0) 44.6 % (39.0-53.0) Mean Corpuscular Volume 86 fL (79-100) 87 fL (79-100) Mean Corpuscular Hemoglobin 31 pg (25-35) 30 pg (25-35) Mean Corpuscular Hemoglobin Concent 36 g/dL (31-37) 35 g/dL (31-37) Red Cell Distribution Width 13.3 % (11.5-14.5) 13.4 % (11.5-14.5) Platelet Count 350 x10^3/uL (140-400) 302 x10^3/uL (140-400) Neutrophils (%) (Auto) 72 % (31-73) 64 % (31-73) Lymphocytes (%) (Auto) 19 % (24-48) 27 % (24-48) Monocytes (%) (Auto) 8 % (0-9) 8 % (0-9) Eosinophils (%) (Auto) 1 % (0-3) 1 % (0-3) Basophils (%) (Auto) 1 % (0-3) 0 % (0-3) Neutrophils # (Auto) 9.1 x10^3uL (1.8-7.7) 6.1 x10^3uL (1.8-7.7) Lymphocytes # (Auto) 2.4 x10^3/uL (1.0-4.8) 2.5 x10^3/uL (1.0-4.8) Monocytes # (Auto) 1.0 x10^3/uL (0.0-1.1) 0.7 x10^3/uL (0.0-1.1) Eosinophils # (Auto) 0.1 x10^3/uL (0.0-0.7) 0.1 x10^3/uL (0.0-0.7) Basophils # (Auto) 0.1 x10^3/uL (0.0-0.2) 0.0 x10^3/uL (0.0-0.2) Prothrombin Time 13.6 SEC (11.7-14.0) Prothromb Time International Ratio 1.1 (0.8-1.1) D-Dimer (Alda) < 0.27 ug/mlFEU Sodium Level 136 mmol/L (136-145) 138 mmol/L (136-145) Potassium Level 3.6 mmol/L (3.5-5.1) 3.4 mmol/L (3.5-5.1) Chloride Level 98 mmol/L (98-107) 101 mmol/L (98-107) Carbon Dioxide Level 26 mmol/L (21-32) 27 mmol/L (21-32) Anion Gap 12 (6-14) 10 (6-14) Blood Urea Nitrogen 10 mg/dL (8-26) 8 mg/dL (8-26) Creatinine 1.0 mg/dL (0.7-1.3) 0.8 mg/dL (0.7-1.3) Estimated GFR (Cockcroft-Gault) 86.1 111.3 BUN/Creatinine Ratio 10 (6-20) 10 (6-20) Glucose Level 130 mg/dL (70-99) 90 mg/dL (70-99) Calcium Level 9.8 mg/dL (8.5-10.1) 9.1 mg/dL (8.5-10.1) Magnesium Level 1.9 mg/dL (1.8-2.4) Total Bilirubin 0.7 mg/dL (0.2-1.0) 0.6 mg/dL (0.2-1.0) Aspartate Amino Transf (AST/SGOT) 21 U/L (15-37) 16 U/L (15-37) Alanine Aminotransferase (ALT/SGPT) 35 U/L (16-63) 28 U/L (16-63) Alkaline Phosphatase 95 U/L (46-116) 81 U/L (46-116) Creatine Kinase 96 U/L (39-308) Creatine Kinase MB (Mass) 0.7 ng/mL (0.0-3.6) Creatine Kinase MB Relative Index 0.7 % (0-4) Troponin I Quantitative < 0.017 ng/mL (0.000-0.055) [id number]-Type Natriuretic Peptide 24 pg/mL (0-124) Total Protein 8.2 g/dL (6.4-8.2) 7.6 g/dL (6.4-8.2) Albumin 4.1 g/dL (3.4-5.0) 3.5 g/dL (3.4-5.0) Albumin/Globulin Ratio 1.0 (1.0-1.7) 0.9 (1.0-1.7) Lipase 79 U/L (73-393) Urine Collection Type Unknown Urine Color Dk yellow Urine Clarity Clear Urine pH 6.5 Urine Specific [place] 1.025 Urine Protein 100 mg/dL (NEG-TRACE) Urine Glucose (UA) Negative mg/dL (NEG) Urine Ketones (Stick) 40 mg/dL (NEG) Urine Blood Negative (NEG) Urine Nitrite Negative (NEG) Urine Bilirubin Negative (NEG) Urine Urobilinogen Dipstick 1.0 mg/dL (0.2 mg/dL) Urine Leukocyte Esterase Negative (NEG) Urine RBC 0 /HPF (0-2) Urine WBC Rare /HPF (0-4) Urine Squamous Epithelial Cells None /LPF Urine Bacteria 0 /HPF (0-FEW) Urine Hyaline Casts Moderate /HPF Urine Mucus Marked /LPF Urine Opiates Screen Neg (NEG) Urine Methadone Screen Neg (NEG) Urine Barbiturates Neg (NEG) Urine Phencyclidine Screen Neg (NEG) Urine Amphetamine/Methamphetamine Neg (NEG) Urine Benzodiazepines Screen Neg (NEG) Urine Cocaine Screen Neg (NEG) Urine Cannabinoids Screen Neg (NEG) Urine Ethyl Alcohol Neg (NEG) Allergies Allergies Coded Allergies Type Severity Reaction Last Updated Verified Penicillins Allergy Unknown 01/24/18 Yes Sulfa (Sulfonamide Antibiotics) Allergy Unknown 01/24/18 Yes Disposition/Orders: D/C to Home Patient Instructions d/c planning 30 min ALONA VARELA MD Jan 26, 2018 13:07
--- NOTE | 2018-01-26 13:08 | DISCH ---
DISCHARGE INSTRUCTIONS Condition on Discharge Condition on Discharge: Stable Activity After Discharge Activity Instructions for Disc: Activity as tolerated Lifting Instructions after Dis: No heavy lifting Exercise Instruction after Dis: Walk 10 min, 3 x per day Weight Bearing Status after Di: No restrictions Diet after Discharge Diet after Discharge: Regular Contacting the DR. after DC Call your doctor for: If your condition worsens ALONA VARELA MD Jan 26, 2018 13:08
[2018-01-26] MEDS ORDERED: AMLO10TA6 PO (13:10)
[2018-01-26] MEDS ORDERED: METR500T PO (13:10)
== END 2018-01-26 13:52 | disposition home or self-care (01) ==
LOC: ER 16:27 → 4 NORTH 19:20
PROVIDERS: ADMIT Internal Medicine; ATTEND Internal Medicine
DX: K56.609 Unspecified intestinal obstruction, unspecified as to partial versus complete obstruction (principal); E86.0 Dehydration; K55.9 Vascular disorder of intestine, unspecified; Z82.49 Family history of ischemic heart disease and other diseases of the circulatory system
CPT/HCPCS: 36415; 74177; 80053; 80307; 81001; 82550; 82553; 83690; 83735; 83880; 84484; 85025; 85379; 85610; 93005; 96361; 96365; 96366; 96367; 96375; 96376; 99285; G0378; J1956; J2270; J2405; J3010; J3490; J7030; Q9967; 96374; G0379; J7120